=== PATIENT | male | born 1955 | race Caucasian/White ===

== ENCOUNTER → 2022-01-17 07:08 | Outpatient (CLI) | payer MEDICARE, OTHER, SELFPAY ==
--- NOTE | 2022-01-17 | CA_ITS ---
APPROVED REPORT Exam: Pharmacologic Technologist: Keerthi Razo, Ht: 5 ft 9 in Wt: 211 lbs BSA: 2.11 m2 HR: 68 bpm BP: 151/87 mmHg Rhythm: NSR, NSSTTW ABNORMALITY Medical History Medical History: HTN, Hyperlipidemia Medications: Amlodipine,,,,, Aspirin,,,,, Metoprolol,,,,, Naproxen,,,,, CloPIdogrel,,,,, Lisinopri/HCTZ,,,,, Allergies: ROSUVASTATIN, ATORVASTATIN Cardiac Risk Factors: HTN, Hyperlipidemia, FHX of CAD Stress Test Details Test: LEXISCAN HR Resting HR: 63 bpm Max Heart Rate (APMHR): 153.773871 bpm Max HR Achieved: 86 bpm Target HR (85% APMHR): 130.623717 bpm % of APMHR: 56.21 Recovery HR: 73 bpm BP Resting BP: 151/87 mmHg Max BP: 151/87 mmHg Recovery BP: 144.0/87.0 mmHg ECG Resting ECG: NSR, NSSTTW ABNORMALITY Clinical Reason for Termination: Completed Protocol Exercise duration: 04:01 min Highest Stage Achieved: Stress ECG Conclusion PT HAD NO CP. <1.[address] SEGMENT CHANGES. NON-DIAGNOSTIC Electronically signed by : Robby Pérez MD 01/17/2022 16:11:33
--- NOTE | 2022-01-17 07:11 | CA_ITS ---
APPROVED REPORT EXAM: Comprehensive 2D, Doppler, and color-flow Echocardiogram Down Filler: Maryam Ruby RDCS Ht: 5 ft 9 in Wt: 211lbs BSA: 2.11 BP: 145/85 mmHg Indications: CAD,HTN,HLP,ALVARENGA 2D Dimensions LVOT 2.12 cm (M/F) 1.5-2.5 M-Mode Dimensions RVDd 2.78 cm (0.9-2.6) LA Diam 4.48 cm (1.9-4.0) LVDd 4.87 cm (3.5-5.7) Ao Diam 3.75 cm (2.0-3.7) LVDs 3.22 cm (3.5-5.7) IVSd 1.05 cm (0.6-1.1) PWd 0.85 cm (0.6-1.1) EF (Teich) 62.60% FS 33.90% EDV (Teich) 111.20 mL TAPSE 2.46 (<1.7) ESV (Teich) 41.60 mL LV Diastology E Decel Time 177.00 (160-240 msec) E/A Ratio 0.9 MED E' 7.40 (< 7 cm/sec) E'/MED E' Ratio 9.09 (>14) LAT E' 8.20 (<10 cm/sec) E/LAT E' Ratio 8.21 (>14) Mitral Valve MV E Max Robert. 67.00 (40-130 cm/s) MV A Velocity 75.00 (40-130 cm/s) E/A Ratio 0.90 MV Decel. Time 177.00 (160-240 ms) MV PHT 52.00 ms Left Ventricle Left atrium is mildly enlarged, left ventricle is normal size, mild concentric left ventricular hypertrophy, estimated ejection fraction 55% with no regional wall motion abnormality, grade 1 diastolic dysfunction seen without tissue Doppler evidence of raise left atrial pressure. Right Ventricle Right atrium and right ventricle are normal size and contractility. Aortic Valve Aortic valve is minimally thickened and fibrosed, there is no aortic stenosis or aortic insufficiency. Mitral Valve Mitral valve grossly normal, there is trace mitral regurgitation. Tricuspid Valve Tricuspid valve grossly normal, there is trace tricuspid regurgitation, tricuspid regurgitation jet velocity is inadequate for calculation of the right ventricular systolic pressure. Pulmonic Valve Pulmonic valve is poorly visualized. Great Vessels Aortic root is normal size. Inferior vena cava is poorly visualized. Pericardium No significant pericardial effusion. Conclusion 1. Mildly enlarged left atrium, normal left ventricular size, mild concentric left ventricular hypertrophy, visually estimated ejection fraction 55% with no regional wall motion abnormality, grade 1 diastolic dysfunction seen without tissue Doppler evidence of raise left atrial pressure. 2. Trace mitral and tricuspid regurgitation. 3. No significant pericardial effusion. 4. Inferior vena cava is poorly visualized. Electronically signed by : Robby Pérez MD 01/17/2022 16:57:18
--- NOTE | 2022-01-17 07:51 | NM_ITS ---
APPROVED REPORT Exam: Nuclear Stress Test Indication: CAD, HTN, HYPERLIPIDEMIA, FM HX, SOB, FATIGUE Patient Location: Outpatient Stress Tech: Keerthi Razo [place] Tech:Vilma Stapleton CAMER[place] RT (R)(N)(M) Ht: 5 ft 9 in Wt: 211 lbs HR: 68 bpm BP: 151/87 mmHg BSA: 2.11 m2 BMI: 31.1 History: CAD, HTN, HYPERLIPIDEMIA, FM HX, SOB, FATIGUE Procedure: Patient received a 0.4 mg of intravenous Lexiscan, resting heart rate 68 bpm, resting blood pressure 151/87 mmHg, with Lexiscan maximum heart rate achived was 84 bpm which is Less than 85 % of the maximum predicted heart rate and blood pressure was 142/84 mmHg. With Lexiscan, patient denied any complaint of chest pain. Electrocardiogram Resting electrocardiogram shows sinus rhythm, with Lexiscan there is less than 1.[address] segment depression noted from the baseline EKG. The EKG portion of the Lexiscan is nondiagnostic. Cardiac Stress and Resting SPECT Images: Cardiac Stress and Resting SPECT images were obtained using technetium 99m Myoview 30.9 mCi stress and 10.50 mCi at rest. Gated SPECT for analysis of segmental wall motion and calculation of the ejection fraction also done. Prone images were also obtained. Cardiac stress and rest SPECT may show uniform myocardial activity without segmental perfusion abnormality, computer derived ejection fraction is 48% with no regional wall motion abnormality, right ventricle is normal size and contractility. Conclusion: 1. The EKG portion of the Lexiscan is nondiagnostic. 2. No scintigraphic evidence of reversible ischemia seen, computer derived ejection fraction is 48% with no regional wall motion abnormality, right ventricle is normal size and contractility. 3. Likely normal Lexiscan Myoview study. Electronically signed by : Robby Pérez MD 01/17/2022 16:27:29
== END ==
PROVIDERS: PCP Physician Assistant; Visit Provider Nurse Practitioner Family
DX: E78.5 Hyperlipidemia, unspecified (principal); I11.9 Hypertensive heart disease without heart failure; I25.10 Atherosclerotic heart disease of native coronary artery without angina pectoris; R06.00 Dyspnea, unspecified; Z95.5 Presence of coronary angioplasty implant and graft
CPT/HCPCS: 78452; 93017; 93306; A9502; J2785